=== PATIENT | male | born 1950 | race Caucasian/White ===

== ENCOUNTER 2021-03-29 07:43 | Outpatient (CLI) | payer MEDICARE, BC, SELFPAY ==
--- NOTE | 2021-03-30 11:04 | WPDPFTINT ---
PFT Procedure Performed PFT Procedure Performed Plethysmography (Lung Vol) Diffusing Cap (DLCO) Flow Vol Loop Spirometry w/o Bronchodil PFT Interpretation Lung volumes were measured with the body plethysmography method. Lung volumes are unremarkable. Spirometry showed diminished expiratory flow rates and a normal FEV1 to FVC ratio of 80%. No post bronchodilator study was carried out. The diminished expiratory flow rates in conjunction with a normal FEV1 to FVC ratio and a normal total lung capacity are indicative of a nonspecific pattern. Lung diffusion capacity is mildly reduced at 75% predicted. The flow volume loop is unremarkable. Impression: Nonspecific pattern, mild reduction in lung diffusion capacity.
== END 2021-03-29 07:44 | disposition home or self-care (01) ==
LOC: ANHPFT 07:46
PROVIDERS: Visit Provider Internal Medicine Pulmonary Disease
DX: Z01.818 Encounter for other preprocedural examination (principal); R05.9 Cough, unspecified; R94.2 Abnormal results of pulmonary function studies
CPT/HCPCS: 94375; 94726; 94729